=== PATIENT | male | born 1985 | race Caucasian/White ===

== ENCOUNTER → 2024-03-13 | Emergency (ER) | payer OTHER ==
[~2024-03-13] VITALS: Ht 162.6 cm; Wt 63.5 kg
[~2024-03-13] MED LIST: TDAP [DIPH/PERTUSSIS/TET] 0.5 ML VIAL IM ONE
[2024-03-13] MEDS: TDAP [DIPH/PERTUSSIS/TET] 0.5 ML VIAL IM ONE (19:53)
[2024-03-13 19:54] VITALS: BP 147/84; TEMP 98.2; O2SAT 100
== END | disposition home or self-care (01) ==
LOC: ER 18:45
DX: S61.512A Laceration without foreign body of left wrist, initial encounter (principal); W26.0XXA Contact with knife, initial encounter; Y93.89 Activity, other specified; Y92.89 Other specified places as the place of occurrence of the external cause; Y99.8 Other external cause status
CPT/HCPCS: 90715

== ENCOUNTER 2024-03-22 16:34 | Emergency (ER) | payer OTHER ==
[~2024-03-22] VITALS: Ht 162.6 cm; Wt 63.5 kg
[2024-03-22 16:48] VITALS: BP 133/76; TEMP 97.9; O2SAT 99
== END 2024-03-22 17:32 | disposition home or self-care (01) ==
LOC: ER 16:37
DX: S61.412D Laceration without foreign body of left hand, subsequent encounter (principal); Z48.02 Encounter for removal of sutures; Z60.2 Problems related to living alone; X58.XXXD Exposure to other specified factors, subsequent encounter

== ENCOUNTER 2024-07-28 10:34 | Emergency (ER) | payer OTHER ==
[~2024-07-28] VITALS: Ht 157.5 cm; Wt 65.8 kg
[2024-07-28 10:50] VITALS: BP 138/102; TEMP 98.2
[2024-07-28] MEDS ORDERED: IBUP-1490 PO (12:52)
[2024-07-28 12:59] VITALS: O2SAT 98
== END 2024-07-28 12:59 | disposition home or self-care (01) ==
LOC: ER 10:57
DX: M25.511 Pain in right shoulder (principal); Z60.2 Problems related to living alone
CPT/HCPCS: 73030-TC